=== PATIENT | female | born 1960 | race Caucasian/White ===

== ENCOUNTER 2023-10-02 09:27 | Day surgery (SDC) | payer OTHER ==
[2023-09-24 14:11] VITALS: BMI 34.2
[2023-10-02 10:07] VITALS: TEMP 97.5
[2023-10-02 11:24] VITALS: PULSE 81; RESP 18
[2023-10-02 12:32] VITALS: BP 114/71
== END 2023-10-02 12:00 | disposition home or self-care (01) ==
LOC: FASU-ENDO 09:27
PROVIDERS: ATTEND Internal Medicine Gastroenterology
PROC: 0DJD8ZZ Inspection of Lower Intestinal Tract, Via Natural or Artificial Opening Endoscopic (ICD-10-PCS; principal; 2023-10-02 10:40)
DX: Z12.11 Encounter for screening for malignant neoplasm of colon (principal); K64.1 Second degree hemorrhoids; K64.8 Other hemorrhoids; K57.30 Diverticulosis of large intestine without perforation or abscess without bleeding

== ENCOUNTER → 2024-08-08 | Day surgery (SDC) | payer OTHER | END | disposition home or self-care (01) | LOC: FMAMMOTONE 08:26 | PROVIDERS: ATTEND Obstetrics & Gynecology | PROC: 0HBT3ZX Excision of Right Breast, Percutaneous Approach, Diagnostic (ICD-10-PCS; principal; 2024-08-08) | DX: C50.411 Malignant neoplasm of upper-outer quadrant of right female breast (principal); Z17.0 Estrogen receptor positive status [ER+]; N63.11 Unspecified lump in the right breast, upper outer quadrant | CPT/HCPCS: 19083; 76642-TC-RT; 76942-TC; 77065-TC; 87899; 88305-TC; 88341-TC; 88342-TC; A4648; G0279-TC ==